=== PATIENT | male | born 1955 | race Caucasian/White ===

== ENCOUNTER 2016-08-16 08:19 | Day surgery (SDC) | payer OTHER, MEDICARE ==
[~2016-08-16] VITALS: Ht 170.2 cm; Wt 93.0 kg
[~2016-08-16 08:19] MED LIST: CLOPIDOGREL75 MG PO; ENTRESTO 24 MG1 EACH PO; FUROSEMIDE40 MG PO; LIPITOR80 MG PO; LYRICA150 MG PO; METOPROLOL TART25 MG PO; METOPROLOL TART50 MG PO; PROZAC10 MG PO; SINGULAIR10 MG PO
[2016-08-16 08:40] VITALS: BP 139/71
[2016-08-16 09:06] LABS: INTER. NORMALIZED RATIO 1.2; PROTHROMBIN TIME 11.9 (9.2-11.2)
[2016-08-16] MEDS ORDERED: PERCOCET 5/31 TABLET PO (11:37)
[2016-08-16 12:16] VITALS: BP 153/83
[2016-08-16 13:25] VITALS: BP 135/89
== END 2016-08-16 13:50 | disposition home or self-care (01) ==
LOC: SDC 08:19
PROVIDERS: Surgery
PROC: 0HB8XZZ Excision of Buttock Skin, External Approach (ICD-10-PCS; principal; 2016-08-16)
DX: M79.81 Nontraumatic hematoma of soft tissue (principal); I11.0 Hypertensive heart disease with heart failure; I50.9 Heart failure, unspecified; I25.2 Old myocardial infarction; E11.9 Type 2 diabetes mellitus without complications; Z79.02 Long term (current) use of antithrombotics/antiplatelets; Z95.1 Presence of aortocoronary bypass graft; Z80.9 Family history of malignant neoplasm, unspecified; Z88.8 Allergy status to other drugs, medicaments and biological substances
CPT/HCPCS: 85610; 85730; 88304; J0690; J2250; J2405; J3010